=== PATIENT | male | born 1985 | race African-American/Black ===

== ENCOUNTER 2022-01-07 03:32 | Emergency (ER) | payer SELFPAY ==
[~2022-01-07] VITALS: Ht 182.9 cm; Wt 73.0 kg
[2022-01-07] MEDS ORDERED: NALOXONE HCL 0.4 MG/ML 1ML VIAL IV PRN (04:30)
[2022-01-07 05:02] LABS: BASOPHILS % 1.2 % (0.0-2.0); EOSINOPHILS % 4.7 % (0.0-5.0); HEMATOCRIT. 39.3 % (42.0-52.0); HEMOGLOBIN. 13.6 g/dL (14.0-18.0); LYMPHOCYTES % 25.4 % (20.0-50.0); MEAN CORPUSCULAR HEMOGLOBIN 32.1 pg (28.0-32.0); MEAN CORPUSCULAR VOLUME 93.1 fL (80.0-94.0); MONOCYTES % 9.6 % (2.0-8.0); NEUTROPHILS % 59.1 % (40.0-76.0); PLATELET 317 x1000/uL (130-400); RED BLOOD CELL COUNT 4.22 mill/uL (4.7-6.1); RED CELL DISTRIBUTION WIDTH 12.5 % (11.6-14.6)
[2022-01-07 05:04] LABS: CLARITY URINE CLEAR (CLEAR); COLOR URINE YELLOW (YELLOW); KETONES URINE NEGATIVE (NEGATIVE); LEUKOCYTE ESTERASE URINE TRACE (NEGATIVE); NITRITE URINE NEGATIVE (NEGATIVE); OCCULT BLOOD URINE NEGATIVE (NEGATIVE); PH URINE 5.5 (4.5-8.0); PROTEIN URINE NEGATIVE (NEGATIVE); SPECIFIC GRAVITY URINE 1.009 (1.005-1.030); UROBILINOGEN URINE 0.2 E.U./dL (0.2-1.0)
[2022-01-07 05:12] LABS: CHLORIDE 109 mEq/L (98-107)
[2022-01-07 05:34] LABS: OPIATES URINE SCREEN NEGATIVE (NEGATIVE); PHENCYCLIDINE URINE SCREEN NEGATIVE (NEGATIVE)
[2022-01-07 05:35] LABS: *AMPHETAMINES SCREEN URINE PRESUMTIVE POSITIVE (NEGATIVE); *BARBITURATES SCREEN URINE NEGATIVE (NEGATIVE); *BENZODIAZEPINES SCREEN URINE NEGATIVE (NEGATIVE); *COCAINE SCREEN URINE PRESUMTIVE POSITIVE (NEGATIVE); CANNABINOID URINE SCREEN PRESUMTIVE POSITIVE (NEGATIVE); METHADONE URINE SCREEN NEGATIVE (NEGATIVE)
[2022-01-07 07:04] LABS: ETHANOL BLOOD 362 mg/dL
[2022-01-07 20:34] VITALS: BP 113/74
== END 2022-01-07 20:40 | disposition home or self-care (01) ==
LOC: EDBD 03:32 → ER 03:32
DX: R41.82 Altered mental status, unspecified (principal); F10.129 Alcohol abuse with intoxication, unspecified; Y90.8 Blood alcohol level of 240 mg/100 ml or more; F19.10 Other psychoactive substance abuse, uncomplicated
CPT/HCPCS: 36415; 70450; 71045; 80053; 80305; 80320; 81003; 82962; 85025; 96374; 99285; J2310; Z7610; G0480

== ENCOUNTER 2023-05-25 13:45 | Emergency (ER) | payer MEDICAID, OTHER ==
[~2023-05-25] VITALS: Ht 182.9 cm; Wt 81.0 kg
[2023-05-25 13:58] VITALS: O2SAT 100
[2023-05-25 16:08] LABS: CLARITY URINE CLEAR (CLEAR); COLOR URINE YELLOW (YELLOW); KETONES URINE NEGATIVE (NEGATIVE); LEUKOCYTE ESTERASE URINE NEGATIVE (NEGATIVE); NITRITE URINE NEGATIVE (NEGATIVE); OCCULT BLOOD URINE NEGATIVE (NEGATIVE); PH URINE 6.5 (4.5-8.0); PROTEIN URINE NEGATIVE (NEGATIVE); SPECIFIC GRAVITY URINE 1.025 (1.005-1.030)
[2023-05-25 17:18] LABS: BASOPHILS % 2.8 % (0.0-2.0); EOSINOPHILS % 13.8 % (0.0-5.0); HEMATOCRIT. 37.4 % (42.0-52.0); HEMOGLOBIN. 12.7 g/dL (14.0-18.0); LYMPHOCYTES % 20.8 % (20.0-50.0); MEAN CORPUSCULAR HEMOGLOBIN 31.2 pg (28.0-32.0); MEAN CORPUSCULAR VOLUME 92.2 fL (80.0-94.0); MEAN PLATELET VOLUME 8.2 fl (7.4-10.4); MONOCYTES % 13.2 % (2.0-8.0); NEUTROPHILS % 49.4 % (40.0-76.0); PLATELET 270 x1000/uL (130-400); RED BLOOD CELL COUNT 4.06 mill/uL (4.7-6.1); RED CELL DISTRIBUTION WIDTH 13.5 % (11.6-14.6)
[2023-05-25 17:20] LABS: CHLORIDE 109 mEq/L (98-107)
[2023-05-25 18:28] VITALS: BP 113/81; PULSE 96; RESP 18; TEMP 98.7
[2023-05-25] MEDS ORDERED: IBUPROFEN 600MG TABLET PO ONE (18:30)
[2023-05-25] MEDS ORDERED: CLINDAMYCIN HCL 150MG CAPSULE PO SCH (18:30)
[2023-05-25] MEDS ORDERED: ACETAMINOPHEN 325MG TABLET PO ONE (18:30)
[2023-05-25] MEDS ORDERED: CLIN-194 MT (19:43)
[2023-05-25] MEDS ORDERED: TOPUD MT (19:43)
[2023-05-25] MEDS ORDERED: CLOT15CR27 TP (19:43)
[2023-05-25] MEDS ORDERED: IBUP-1523 MT (19:43)
== END 2023-05-25 19:54 | disposition home or self-care (01) ==
LOC: ER 13:45
DX: K62.89 Other specified diseases of anus and rectum (principal); R21 Rash and other nonspecific skin eruption
CPT/HCPCS: 36415; 74176; 76870; 80053; 81003; 85025; 93976; 99284